=== PATIENT | female | born 1965 | race Caucasian/White ===

== ENCOUNTER → 2017-10-13 | Outpatient (CLI) | payer MEDICARE, OTHER ==
[2015-04-24 21:30] VITALS: BP 115/71
[~2017-10-13] MED LIST: ALPR0.5T PO; ARIP5TAB13 PO; FLUO20CA16 PO; FURO-68 PO; FURO-69 PO; FURO40TA4 PO; GABA-586 PO; HYDR25TA9 PO; LEVO40CA PO; LEVO750T31 PO; LIPA1CAP14 PO; OXYC10TA PO; OXYC10TA45 PO; OXYC5TAB95 PO; PANT40TA5 PO; POTA20LI27 PO; SPIR50TA4 PO; VANC1PLA2 IV; WARF-31 PO; zyprexa PO
--- NOTE | 2017-10-13 15:32 | RAD ---
EXAM: Right lower extremity venous Doppler sonogram. HISTORY: Edema. TECHNIQUE: Sheets scale and color Doppler sonographic evaluation of the right lower extremity veins with spectral waveform analysis was performed. FINDINGS: There is normal color flow, normal compressibility and there are normal spectral waveforms in the right lower extremity veins. IMPRESSION: No Doppler evidence of lower extremity deep venous thrombosis. Electronically signed by: Zahra Greer MD (10/13/2017 3:28 PM) [place] [id number]
== END | disposition home or self-care (01) ==
LOC: US 14:51
PROVIDERS: ATTEND Family Medicine
DX: M79.661 Pain in right lower leg (principal)
CPT/HCPCS: 93971

== ENCOUNTER 2017-11-08 20:57 | Inpatient (IN) | payer MEDICARE ==
[~2017-11-08] VITALS: Ht 154.9 cm; Wt 71.3 kg
[2017-11-08] MEDS ORDERED: KETOROLAC 30 MG/ML VIAL. IV ONE (21:45)
[2017-11-08] MEDS ORDERED: VANCOMYCIN PER PHARMACY MC ONE ×2 (21:45→22:45)
--- NOTE | 2017-11-08 21:54 | PHYS DOC ---
Past History Past Medical History: DVT, Liver Disease, Pancreatitis, Other Past Surgical History: Appendectomy, Tubal ligation, Other Smoking: Quit Greater Than 1 Year Alcohol Use: Sober Drug Use: None Adult General Chief Complaint Chief Complaint: LOWER EXTREMITY SWELLING [facility] 52-year-old female patient complaining of increasing chronic right lower leg edema for the last 10 days that did not get better with taking Lasix. Patient complaining of increasing pain in medial side of her leg and rated her pain 8/ 10. Patient was instructed by her primary care physician to come to ER for evaluation. Patient had history of right lower extremity DVT and fasciotomy in 2015 and multiple episodes of cellulitis. Patient had negative lower extremity ultrasound 2 weeks ago for DVT. Patient denies fever and chills, recent immobilization, shortness of breath, focal neuro deficit. Review of Systems Review of Systems Constitutional: Denies fever or chills [] Eyes: Denies change in visual acuity, redness, or eye pain [] HENT: Denies nasal congestion or sore throat [] Respiratory: Denies cough or shortness of breath [] Cardiovascular: No additional information not addressed in HPI [] GI: Denies abdominal pain, nausea, vomiting, bloody stools or diarrhea [] : Denies dysuria or hematuria [] Musculoskeletal: Denies back pain or joint pain, reports extremity pain[] Integument: Denies rash or skin lesions [] Neurologic: Denies headache, focal weakness or sensory changes [] Endocrine: Denies polyuria or polydipsia [] All other systems were reviewed and found to be within normal limits, except as documented in this note. Allergies Allergies Allergies Coded Allergies Type Severity Reaction Last Updated Verified No Known Drug Allergies 03/29/15 No Physical Exam Physical Exam Constitutional: Well developed, well nourished, mild distress, non-toxic appearance. [] HENT: Normocephalic, atraumatic Eyes: PERRLA, EOMI, conjunctiva normal, no discharge. [] Neck: Normal range of motion, no tenderness, supple, no stridor. [] Cardiovascular:Heart rate regular rhythm, no murmur [] Lungs & Thorax: Bilateral breath sounds clear to auscultation [] Abdomen: Bowel sounds normal, soft, no tenderness, no masses, no pulsatile masses. [] Skin: Warm, dry, no erythema, no rash. [] Back: No tenderness, no CVA tenderness. [] Extremities: Right lower extremity DVT and warmness plus edema without erythema. Palpebral dorsalis pedis pulse without neurovascular deficit, clean scar of fasciotomy in medial side of right lower extremity without drainage of pus Neurologic: Alert and oriented X 3, normal motor function, normal sensory function, no focal deficits noted. [] Psychologic: Affect normal, judgement normal, mood normal. [] EKG EKG [] Radiology/Procedures Radiology/Procedures X-ray of tibia-fibula the by me and did not show bony problem. There was soft tissue swelling. [address] [id number] IMAGING REPORT Signed PATIENT: TAYLER TAVERAS ACCOUNT: [id number] : 1965 LOCATION: [address] [place] [address] AGE: 52 SEX: F EXAM STATUS: ADM IN ORD. PHYSICIAN: WINSOME FORMAN MD REASON: Right lower leg swelling and pain, patient states she feel excess PROCEDURE: TIBIA FIBULA RIGHT Indication: Right lower leg swelling and pain. TECHNIQUE: 2 views of the right tibia and fibula COMPARISON: None FINDINGS: No acute fracture or dislocation. Tricompartmental osteoarthritis of the knee joint worse in the medial joint compartment. Ankle mortise is intact. No soft tissue abnormality. IMPRESSION: No acute osseous findings. Electronically signed by: Suhail Farias DO (11/08/2017 10:20 PM) [facility] DICTATED AND SIGNED BY: SUHAIL FARIAS DO DATE: 11/08/17 5019 CC: CHACE CALL MD; WINSOME FORMAN MD; ALCIDES HENDERSON ~ Course & Med Decision Making Course & Med Decision Making Pertinent Labs and Imaging studies reviewed. (See chart for details) Dr. Engle accepted admission at 6. [] Dragon Disclaimer Dragon Disclaimer This electronic medical record was generated, in whole or in part, using a voice recognition dictation system. Departure Departure: Impression: Primary Impression: Cellulitis of right lower extremity Additional Impression: History of cirrhosis Disposition: ADMITTED INPATIENT (at 2146) Admitting Physician: Chace Call Condition: IMPROVED Referrals: HENDERSON,ALCIDES RADIO COMMENTATOR-C (PCP) Problem Qualifiers WINSOME FORMAN MD Nov 08, 2017 21:54
[2017-11-08] MEDS ORDERED: VANCOMYCIN 1.75 GM in IV NORMAL SALINE 500ML 500 ML IV ONE (22:00)
[2017-11-08 22:09] LABS: BASO % 1 % (0-3); EOS # 0.1 x10^3/uL (0.0-0.7); EOS % 2 % (0-3); HEMATOCRIT 38.8 % (36.0-47.0); HEMOGLOBIN 13.4 g/dL (12.0-15.5); LYMPH # 1.7 x10^3/uL (1.0-4.8); LYMPH % 47 % (24-48); MEAN CORPUSCULAR HEMOGLOBIN 32 pg (25-35); MEAN CORPUSCULAR HGB CONC 34 g/dL (31-37); MEAN CORPUSCULAR VOLUME 92 fL (79-100); MONO # 0.4 x10^3/uL (0.0-1.1); MONO % 10 % (0-9); NEUT # 1.4 x10^3uL (1.8-7.7); NEUT % 40 % (31-73); PLATELET COUNT 94 x10^3/uL (140-400); RED BLOOD COUNT 4.24 x10^6/uL (3.50-5.40); RED CELL DISTRIBUTION WIDTH 15.2 % (11.5-14.5); WHITE BLOOD COUNT 3.6 x10^3/uL (4.0-11.0)
[2017-11-08 22:22] LABS: ALBUMIN 3.7 g/dL (3.4-5.0); ALBUMIN/GLOBULIN RATIO 1.1 (1.0-1.7); C REACTIVE PROTEIN 1.3 mg/L (0-3.3); CALCIUM 9.1 mg/dL (8.5-10.1); CREATININE 0.8 mg/dL (0.6-1.0); GFR 75.9; POTASSIUM 3.5 mmol/L (3.5-5.1); TOTAL BILIRUBIN 0.8 mg/dL (0.2-1.0)
--- NOTE | 2017-11-08 22:23 | RAD ---
Indication: Right lower leg swelling and pain. TECHNIQUE: 2 views of the right tibia and fibula COMPARISON: None FINDINGS: No acute fracture or dislocation. Tricompartmental osteoarthritis of the knee joint worse in the medial joint compartment. Ankle mortise is intact. No soft tissue abnormality. IMPRESSION: No acute osseous findings. Electronically signed by: Suhail Farias DO (11/08/2017 10:20 PM) [facility]
[2017-11-08] MEDS ORDERED: MORPHINE SULFATE 4 MG/ML DISP.SYRIN. IV ONE (22:30)
[2017-11-08 22:42] LABS: % EOS 2 % (0-5); % LYMPHS 54 % (24-48); % MONOS 9 % (0-10); % SEGS 35 % (35-66); PLT ESTIMATE DECREASED (ADEQUATE)
[2017-11-08] MEDS ORDERED: VANCOMYCIN PER PHARMACY MC PRN (23:00)
[2017-11-08 23:09] VITALS: BP 134/83
[2017-11-08 23:10] LABS: SEDIMENTATION RATE 2 (0-25)
[2017-11-09] MEDS ORDERED: BUPR100T11 PO ×2 (00:36)
[2017-11-09] MEDS ORDERED: SPIR25TA5 PO (00:36)
[2017-11-09 05:54] VITALS: BP 103/61
[2017-11-09] MEDS ORDERED: KETOROLAC 15 MG/ML VIAL. IV PRN (07:15)
[2017-11-09] MEDS: FUROSEMIDE 40 MG TABLET PO SCH (07:58)
[2017-11-09] MEDS: SPIRONOLACTONE 25 MG TABLET PO SCH ×2 (07:58→16:17)
[2017-11-09] MEDS ORDERED: HEPARIN PF for SUB-Q USE 5,000 UNIT/0.5 ML VIAL. SQ SCH ×2 (08:00→14:00)
[2017-11-09] MEDS: buPROPion 100 MG TABLET PO SCH (08:00)
[2017-11-09] MEDS: VANCOMYCIN 1 GM in IV NORMAL SALINE 250ML 250 ML IV SCH ×2 (10:20→21:40)
[2017-11-09 10:38] VITALS: BP 133/76
[2017-11-09] MEDS ORDERED: KETOROLAC 30 MG/ML VIAL. IV PRN (11:15)
[2017-11-09] MEDS: oxyCODONE IR 5 MG TABLET PO PRN ×3 (13:23→21:41)
[2017-11-09 14:44] VITALS: BP 114/65
[2017-11-09] MEDS ORDERED: buPROPion 100 MG TABLET PO SCH (16:00)
[2017-11-09 19:30] VITALS: BP 147/86
[2017-11-09 23:07] VITALS: BP 109/68
[2017-11-10] MEDS: oxyCODONE IR 5 MG TABLET PO PRN (05:01)
[2017-11-10 05:25] VITALS: BP 100/62
[2017-11-10] MEDS: FUROSEMIDE 40 MG TABLET PO SCH (08:55)
[2017-11-10] MEDS: SPIRONOLACTONE 25 MG TABLET PO SCH (08:55)
[2017-11-10] MEDS: buPROPion 100 MG TABLET PO SCH (08:55)
[2017-11-10] MEDS ORDERED: CEPH-264 PO (09:25)
--- NOTE | 2017-11-15 21:39 | DS ---
DATE OF DISCHARGE: 11/10/2017 HOSPITAL COURSE: A 52-year-old female came in with severe pain in her right leg. She has had a previous fasciotomy. The patient has been treated as an outpatient with no success in terms of getting what appeared to be an infective process within the right leg. She also was having problems with hypertension. The patient made good progress during the rest of her hospitalization. X-rays taken of the right leg were unremarkable and the patient received IV antibiotic therapy. She has a slight elevation of her liver enzyme with 39 damien her AST; otherwise, the patient made good progress with IV antibiotic therapy. She was discharged home for followup as an outpatient and will continue to receive therapy as an outpatient. IMPRESSION: Cellulitis to the right lower leg, history of compression syndrome of the right leg as well as elevated liver enzyme, thrombocytopenia and elevated lymphocytes. PLAN: The patient will be discharged home. MEDICATIONS: See MRAD. DISCHARGE INSTRUCTIONS: Decreased activity and return to clinic for followup in 7-10 days or sooner as needed. CHACE CALL MD DR: TRUMAN/althea JOB#: [id number] / [id number]
== END 2017-11-10 10:15 | disposition home or self-care (01) | DRG 603 ==
LOC: ER 20:57 → 1 SOUTH 21:52
PROVIDERS: ADMIT Family Medicine; ATTEND Family Medicine
DX: L03.115 Cellulitis of right lower limb (principal); K74.60 Unspecified cirrhosis of liver; Z86.718 Personal history of other venous thrombosis and embolism; Z87.891 Personal history of nicotine dependence; Z90.49 Acquired absence of other specified parts of digestive tract; Z98.51 Tubal ligation status; R74.8 Abnormal levels of other serum enzymes; D69.6 Thrombocytopenia, unspecified; I89.0 Lymphedema, not elsewhere classified; I89.8 Other specified noninfective disorders of lymphatic vessels and lymph nodes; F43.22 Adjustment disorder with anxiety; F34.1 Dysthymic disorder
CPT/HCPCS: 36415; 73590; 80053; 83605; 85007; 85025; 85379; 85651; 86140; 87040; 96365; 96375; J1885; J2270; J3370; J7040; J7050; 99285-25

== ENCOUNTER → 2019-02-19 | Outpatient (CLI) | payer MEDICARE ==
[~2019-02-19] MED LIST changes: +BUPR100T11 PO; +CEPH-264 PO; +HYDR-2145 PO; -HYDR25TA9 PO; -OXYC10TA45 PO; +OXYC10TA46 PO; +OXYC5TAB4 PO; -OXYC5TAB95 PO; +SPIR25TA5 PO
--- NOTE | 2019-02-19 15:03 | RAD ---
INDICATION: Right leg edema COMPARISON: September 2017 TECHNIQUE: Grayscale, color and doppler ultrasound images were obtained of the right lower extremity venous vasculature. RIGHT: No thrombus identified in the common femoral vein, femoral vein, popliteal vein or visualized calf veins. Portion of the right common femoral vein has some turbulent flow and high velocity. IMPRESSION: * No thrombus identified in deep venous system of right lower extremity. * There is some turbulent flow and high velocity within a portion of the right common femoral vein. This is of unknown etiology with some possible causes including a region of narrowing. If the patient has not had a procedure in this region causes such as an arterial to venous fistula would be uncommon. Electronically signed by: Ruddy Neil MD (02/19/2019 3:00 PM) [facility]
== END | disposition home or self-care (01) ==
LOC: US 14:01
PROVIDERS: ATTEND Physician Assistant
DX: L03.115 Cellulitis of right lower limb (principal); R60.0 Localized edema
CPT/HCPCS: 93971

== ENCOUNTER → 2020-03-13 | Outpatient (CLI) | payer MEDICARE ==
[~2020-03-13] MED LIST changes: -PANT40TA5 PO; +PANT40TA6 PO
--- NOTE | 2020-03-13 16:55 | RAD ---
INDICATION: Knee pain COMPARISON: None. IMPRESSION: 3 views of the right knee and one view of the left knee obtained. Left knee: Degenerative changes the left knee with severe medial joint space narrowing as well as osteophyte formation could be seen with degenerative changes. There is also suspected subchondral cyst formation including at the intercondylar notch. Right knee: Severe degenerative changes with joint space narrowing most severe at the medial compartment. There is osteophyte formation. No evidence of acute fracture. Severe calcific atherosclerosis. Electronically signed by: Ruddy Neil MD (03/13/2020 4:53 PM) [id number]
== END ==
LOC: DXRAD 13:50
PROVIDERS: ATTEND Orthopaedic Surgery
DX: M17.0 Bilateral primary osteoarthritis of knee (principal)
CPT/HCPCS: 73560; 73565